=== PATIENT | female | born 1950 | race Caucasian/White ===

== ENCOUNTER 2017-04-04 09:55 | Outpatient (CLI) | payer MEDICARE, OTHER ==
--- NOTE | 2017-04-06 11:58 | Mammography Report ---
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 COMPARISON: Films from [place], [place] dated 04/05/2015, 04/10/2014, 04/10/2013, 04/07/2013, 04/08/2012, 05/27/2011, 04/13/2011, 04/08/2011, 04/03/2011, 03/24/2010. TECHNIQUE: Routine CC and MLO projections were obtained of the breasts. FINDINGS: The breasts again demonstrate scattered fibroglandular densities bilaterally. Postoperati ve and post-treatment changes in the right breast and post-biopsy changes in the left breast are stab le. Coarse and punctate, typically benign calcifications are present. No suspicious masses, cluster ed microcalcifications, or regions of architectural distortion are identified. IMPRESSION: BENIGN FINDINGS. RECOMMENDATION: Routine annual screening unless otherwise clinically indicated. BIRADS CATEGORY 2 - BENIGN FINDINGS. STANDARD QUALIFYING STATEMENTS 1. This examination was reviewed with the aid of Computer-Aided Detection (CAD). 2. A negative or benign imaging report should not delay biopsy if clinically suspicious findings are present. Consider surgical consultation if warranted. More than 5% of cancers are not identified by i maging. 3. Dense breasts may obscure an underlying neoplasm. JOB #: [id number] EXT JOB #:[id number]
== END 2017-04-04 09:56 | disposition home or self-care (01) ==
LOC: DI 09:55
PROVIDERS: ATTEND Internal Medicine Hematology & Oncology
DX: Z12.31 Encounter for screening mammogram for malignant neoplasm of breast (principal); Z80.3 Family history of malignant neoplasm of breast
CPT/HCPCS: 77067

== ENCOUNTER 2021-05-06 11:44 | Outpatient (CLI) | payer MEDICARE ==
--- NOTE | 2021-05-06 15:19 | XRAY Report ---
PROCEDURE: Foot 3 View RT INDICATIONS: PAIN + EDEMA TECHNIQUE: 3 views of the foot were acquired. COMPARISON: None. FINDINGS: Bones: No acute fractures or dislocations. No suspicious bony lesions. A congenitally bipartite me dial hallux sesamoid is present. Small posterior calcaneal enthesophyte. Tiny plantar calcaneal enthe sophyte. Soft tissues: No suspicious soft tissue calcification. IMPRESSION: No acute osseous abnormality. If symptoms persist with conservative management, further evaluation wi th CT or MRI may be obtained. Reviewed by: Torrey Mejia MD on 05/06/2021 3:18 PM PDT Approved by: Torrey Mejia MD on 05/06/2021 3:18 PM PDT Station ID: [id number]
== END 2021-05-06 11:45 | disposition home or self-care (01) ==
LOC: DI 11:44
PROVIDERS: ATTEND Podiatrist
DX: M79.671 Pain in right foot (principal)